=== PATIENT | male | born 1995 | race Caucasian/White ===

== ENCOUNTER 2017-10-02 13:32 | Day surgery (SDC) | payer BC ==
[~2017-10-02 13:32] MED LIST: GLYCOPYRROLATE 0.4 MG INJ; NEOSTIGMINE 3 MG/3 ML SYRINGE; ROCURONIUM 50 MG INJ
[2017-10-02] MEDS ORDERED: FENTAnyl 50 MCG/ML VIAL (15:25)
[2017-10-02] MEDS ORDERED: MIDAZOLAM 1 MG/ML 2 ML INJ (15:25)
[2017-10-02] MEDS ORDERED: DEXAMETHASONE 4 MG/ML 1 ML INJ (15:50)
[2017-10-02] MEDS: COCAINE 4% 4 ML TOP (15:59)
[2017-10-02] MEDS: BACITRACIN/POLYMYXIN 28.35 GM OINT TOP (15:59)
[2017-10-02] MEDS: LIDOCAINE 1%/EPI 30 ML INJ (16:00)
[2017-10-02] MEDS ORDERED: ONDANSETRON 4 MG INJ (16:12)
[2017-10-02] MEDS ORDERED: PROPOFOL 20 ML (16:16)
[2017-10-02] MEDS ORDERED: LIDOCAINE 2% (SDV) 5 ML INJ (16:16)
[2017-10-02] MEDS ORDERED: MEPERIDINE 25 MG INJ IV (16:30)
[2017-10-02] MEDS ORDERED: DIPHENHYDRAMINE 50 MG INJ IV (16:30)
[2017-10-02] MEDS ORDERED: HYDROmorphONE (0.2 MG/ML) 10ML SYG IV ×2 (16:30)
[2017-10-02] MEDS: FENTAnyl 50 MCG/ML VIAL IV (16:50)
[2017-10-02] MEDS: ONDANSETRON 4 MG INJ IV (16:52)
[2017-10-02] MEDS ORDERED: HYDROCODONE/APAP (5/325) TAB PO (18:00)
== END 2017-10-02 18:05 | disposition home or self-care (01) ==
LOC: SDS 13:32
DX: J34.2 Deviated nasal septum (principal)
CPT/HCPCS: 30140

== ENCOUNTER 2017-10-03 10:39 | Emergency (ER) | payer OTHER, BC ==
[2017-10-03] MEDS: HYDROCODONE/APAP (5/325) TAB PO (11:42)
[2017-10-03] MEDS: LORATADINE 10 MG TAB PO (11:48)
== END 2017-10-03 12:20 | disposition home or self-care (01) ==
LOC: FTE 10:39
DX: R04.0 Epistaxis (principal)
CPT/HCPCS: 30903; 99283-25